=== PATIENT | female | born 1970 | race Caucasian/White ===

== ENCOUNTER 2016-12-12 05:15 | Day surgery (SDC) | payer OTHER ==
[2016-12-07 13:39] VITALS: BMI 34.9
--- NOTE | 2016-12-12 11:09 | HP ---
History & Physical Update - History History: No Change - Physical Physical: No Change - Assessment Assessment: No Change - Plan Plan: No Change (abnormal uterine bleeding and endometrial polyp - for hysterscopic myomectomy/polypectomy and D&C)
[2016-12-12] MEDS ORDERED: IBUPROFEN 800 MG/8 ML IJ IVPB PRN (11:12)
[2016-12-12] MEDS ORDERED: LACTATED RINGERS SOLUTION 1,000 ML IV SCH (11:15)
[2016-12-12] MEDS ORDERED: MIDAZOLAM HCL 2 MG/2 ML SINGLE DOSE VIAL ONE (11:30)
[2016-12-12] MEDS ORDERED: DEXAMETHASONE SOD PHOSPHATE 4 MG/1 ML VIAL ONE (11:37)
[2016-12-12] MEDS ORDERED: SUCCINYLCHOLINE CHLORIDE 200 MG/10 ML VIAL ONE (11:37)
[2016-12-12] MEDS ORDERED: KETOROLAC TROMETHAMINE 30 MG/1 ML VIAL ONE (11:37)
[2016-12-12] MEDS ORDERED: PROPOFOL 20 ML ONE (11:38)
--- NOTE | 2016-12-12 12:21 | OP ---
Operative Note - Note: Operative Date: 12/12/16 (dictation number [id number]) Pre-Operative Diagnosis: abnormal uterine bleeding, endometrial polyp Operation: hysteroscopic resection of endometrial and cervical polyp Findings: posterior endometrial polyp posterior endocervical polyp otherwise normal anatomy Post-Operative Diagnosis: Same as Pre-op Surgeon: Eryn Haro Anesthesiologist/SCHEDULING ADMINISTRATOR: Kelly Khan MD Anesthesia: General Estimated Blood Loss (mls): 5 Operative Report Dictated: Yes
[2016-12-12] MEDS ORDERED: ONDANSETRON 4 MG/2 ML VIAL IVPUSH PRN (12:43)
[2016-12-12 15:53] VITALS: PULSE 70
[2016-12-12 15:57] VITALS: BP 118/70; TEMP 97.8
--- NOTE | 2016-12-13 10:34 | PATH ---
Surgical Pathology Report Patient Name: RADHA ESNA [facility]. Rec. #: [id number] /Age/Gender: 1970 (Age: 46) / F Account: [id number] Location: [facility] SURGICAL Taken: 12/12/2016 Received: 12/12/2016 Reported: 12/13/2016 Physicians: Eryn Haro M.D. Specimen(s) Received ENDOMETRIAL CURETTINGS & POLYPS Clinical History Endometrial polyp Final Diagnosis ENDOMETRIUM, CURETTING AND POLYPECTOMY: PORTIONS OF BENIGN ENDOMETRIAL POLYP, AND PROLIFERATIVE ENDOMETRIUM. NO ENDOMETRIAL HYPERPLASIA OR CARCINOMA IDENTIFIED. Electronically Signed Andres Pepper M.D. Gross Description Received in formalin labeled "endometrial polyp and curettings," is a 4.5 x 4.0 x 0.4 cm aggregate of gordon pink soft tissue fragments. The formalin is filtered and the specimen is entirely submitted in 3 cassettes. /12/12/2016 saudi/12/12/2016
--- NOTE | 2016-12-13 11:31 | OP ---
DATE OF OPERATION: 12/12/2016 PREOPERATIVE DIAGNOSIS: Abnormal uterine bleeding suspected endometrial polyp versus fibroid. POSTOPERATIVE DIAGNOSIS: Abnormal uterine bleeding suspected endometrial polyp versus fibroid with large posterior endometrial polyp. PROCEDURE PERFORMED: Hysteroscopic resection of endometrial polyp, suction dilatation and curettage. SURGEON: Eryn Haro DO ANESTHESIA: General. ANESTHESIOLOGIST: COMPLICATIONS: None. ESTIMATED BLOOD LOSS: Approximately 5 mL. SPECIMENS REMOVED: Included endometrial polyp and endometrial curettings. SPONGE, NEEDLE AND INSTRUMENT COUNTS: Reported to be correct. DISPOSITION: Stable to PACU. BRIEF HISTORY AND PROCEDURE: The patient is a 46-year-old female who had been seen in the office with complaints of heavy abnormal menstrual bleeding and upon saline infusion sonography was found to have an endometrial polyp. The patient was counseled on her options and elected to undergo hysteroscopic resection of the endometrial polyp. The patient had sign consents in the office which were reconfirmed upon admission on December 12, 2016. The patient was taken back to the operating room, given general anesthesia by . She was then prepped and draped in the dorsal lithotomy position without difficulty. The cervix was dilated to accommodate a diagnostic hysteroscope which was advanced to the fundus of the uterus. Bilateral tubal ostia were noted. A large posterior endometrial polyp was appreciated and a posterior cervical polyp was also appreciated. The cervix was then further dilated to accommodate an operative hysteroscope which was again advanced to the fundus. Again bilateral tubal ostia were noted. Using the razor point resectoscope, the posterior endometrial polyp was then resected in its entirety in the usual fashion. Then, the cervical polyp was also resected in its entirety in the usual fashion using the resectoscope device. A suction D and C was performed to remove all the resected tissue, endometrial contents. One final look with the scope revealed no remaining portions of the endometrial polyps or the cervical polyp and no evidence of uterine perforation was appreciated. The deficit was 0 mL of saline. All instruments were removed from the vagina. Tenaculum sites were noted to be hemostatic. Sponge and instrument counts were reported to be correct. The patient tolerated the procedure well and was recovering in stable condition in the PACU at the time of this dictation. ERYN HARO DO /[id number]
== END 2016-12-12 15:00 | disposition home or self-care (01) ==
LOC: JASU-SURG 05:15
PROVIDERS: ATTEND Obstetrics & Gynecology
PROC: 0UB98ZX Excision of Uterus, Via Natural or Artificial Opening Endoscopic, Diagnostic (ICD-10-PCS; principal; 2016-12-12 11:00)
PROC: 0UDB8ZX Extraction of Endometrium, Via Natural or Artificial Opening Endoscopic, Diagnostic (ICD-10-PCS; 2016-12-12 11:00)
DX: N93.9 Abnormal uterine and vaginal bleeding, unspecified (principal); N84.0 Polyp of corpus uteri
CPT/HCPCS: 84703; 88305-TC; 94760

== ENCOUNTER 2017-05-25 16:25 | Emergency (ER) | payer OTHER ==
[2017-05-25 16:36] VITALS: BMI 34.9
--- NOTE | 2017-05-25 16:54 | PDOC ---
History of Present Illness - General Chief Complaint: Pain, Acute Stated Complaint: STOMACH PAIN Time Seen by Provider: 05/25/17 16:54 - History of Present Illness Initial Comments: 05/25/17 18:30 47yo woman with PMH of gastritis, ERCP induced pancreatitis and choledocholithiasis s/p cholecystectomy 2 months ago who presents with acute onset of epigastric pain radiating to sternum and L arm since this AM. Pain is stabbing in character, 8/10 at peak, now 7/10. She vomited once this AM. Denies fever or chills. Allergies: NKDA Social: No tobacco use PCP: Dr. Tonia Dewey GI: Dr. Parker 05/25/17 19:08 Past History - Past Medical History Allergies/Adverse Reactions: Allergies Allergy/AdvReac Type Severity Reaction Status Date / Time No Known Allergies Allergy Verified 05/25/17 16:30 Home Medications: Ambulatory Orders NK [No Known Home Medication] 05/25/17 Anemia: Yes (MILD) Asthma: No Cancer: No Cardiac Disorders: No CVA: No COPD: No CHF: No Dementia: No Diabetes: No GI Disorders: Yes (CONSTIPATION, BILE DUCT HYPERTROPHY, Gastritis) Disorders: No HTN: No Hypercholesterolemia: No Liver Disease: Yes (FATTY LIVER) Seizures: No Thyroid Disease: No - Surgical History Abdominal Surgery: No Appendectomy: No Cardiac Surgery: No Cholecystectomy: No Lung Surgery: No Neurologic Surgery: No Orthopedic Surgery: No - Suicide/Smoking/Psychosocial Hx Smoking History: Never smoked Have you smoked in the past 12 months: No Information on smoking cessation initiated: No Hx Alcohol Use: No Drug/Substance Use Hx: No Substance Use Type: Alcohol Hx Substance Use Treatment: No *Physical Exam - Vital Signs Last Vital Signs Temp Pulse Resp BP Pulse Ox 97.6 F 81 20 127/69 100 05/25/17 16:30 05/25/17 16:30 05/25/17 16:30 05/25/17 16:30 05/25/17 16:30 ED Treatment Course - LABORATORY CBC & Chemistry Diagram: 05/25/17 17:36 05/25/17 17:36 Medical Decision Making - Medical Decision Making 05/25/17 19:09 47yo woman with significant h/o gastritis, ERCP induced pancreatitis, and choledocholithiasis s/p cholecystectomy 2 months ago who presents with severe epigastric/sternal pain radiating to L arm. DDx includes pancreatitis, retained stone, ACS with atypical CP, gastritis. Will order CBC, CMP, lipase, cardiac enzymes, EKG. 05/25/17 19:18 EKG NSR, rate 83, normal axis, normal intervals, no ischemic changes. 1st Troponin neg, lipase wnl. Will order Abd/pelvis CT with IV contrast. 05/25/17 19:20 Case signed off to in-coming resident. *DC/Admit/Observation/Transfer - Referrals Referrals: Tonia Dewey [Primary Care Provider] - - Patient Instructions - Post Discharge Activity
--- NOTE | 2017-05-25 16:59 | PDOC ---
Attending Attestation - HPI HPI: 05/25/17 17:33 47 year old woman, with significant past medical history of Cholecystectomy () and gastritis, who presents to the emergency room complaining of epigastric pain that radiates to the sternum and left arm that started this morning and is 10/10 in severity at its worst. She reports 1 episode of vomiting today. Allergies: NKA Social: No tobacco use PCP: Dr. Tonia Dewey GI: Dr. Parker <Ana Forbes - Last Filed: 05/25/17 17:33> - Resident Resident Name: FiorellaShavon - ED Attending Attestation I have performed the following: I have examined & evaluated the patient, The case was reviewed & discussed with the resident, I agree w/resident's findings & plan, Exceptions are as noted - Physicial Exam PE: GENERAL: Awake, alert, and fully oriented, in no acute distress. Appears uncomfortable. HEAD: No signs of trauma EYES: PERRLA, EOMI, sclera anicteric, conjunctiva clear ENT: Auricles normal inspection, hearing grossly normal, nares patent, oropharynx clear without exudates. Moist mucosa NECK: Normal ROM, supple, no lymphadenopathy, JVD, or masses LUNGS: Breath sounds equal, clear to auscultation bilaterally. No wheezes, and no crackles HEART: Regular rate and rhythm, normal S1 and S2, no murmurs, rubs or gallops ABDOMEN: Soft, nontender, normoactive bowel sounds. No guarding, no rebound. No masses EXTREMITIES: Normal range of motion, no edema. No clubbing or cyanosis. No cords, erythema, or tenderness NEUROLOGICAL: Cranial nerves II through XII grossly intact. Normal speech, normal gait SKIN: Warm, Dry, normal turgor, no rashes or lesions noted. - Medical Decision Making Pain is not reproducible on exam, however, she states it is similar to when she had cholecystitis. DDx includes pancreatitis, retained stone, gastritis, and ACS. Will obtain CT a/p, EKG, labs including CE. Will give morphine for pain, protonix. <Anabell Quinteros - Last Filed: 05/25/17 18:41>
[2017-05-25 17:40] LABS: BASOPHIL 0.3 % (0-2.0); EOSINOPHIL 0.3 % (0-4.5); MCH 23.1 pg (25.7-33.7); MCHC 31.4 g/dl (32.0-36.0); MEAN CELL VOLUME 73.6 fl (80-96); MEAN PLT VOLUME 7.8 fl (7.5-11.1); NEUTROPHILS 85.4 % (42.8-82.8); PLATELET COUNT 305 K/MM3 (134-434); RDW 18.6 % (11.6-15.6); WHITE BLOOD COUNT 15.4 K/mm3 (4.0-10.0)
[2017-05-25] MEDS ORDERED: morphine CARPU-JECT 4 MG/1 ML DISP.SYRIN IVPUSH ONE (17:44)
[2017-05-25] MEDS ORDERED: PANTOPRAZOLE SODIUM 40 MG VIAL IVPUSH ONE (17:45)
[2017-05-25] MEDS ORDERED: PANTOPRAZOLE SODIUM 40 MG/100 ML BAG IVPB ONE (17:51)
[2017-05-25] MEDS ORDERED: morphine SULFATE 4 MG/ML VIAL ONE (17:51)
[2017-05-25 18:13] LABS: ALBUMIN 3.9 g/dl (3.4-5.0); ANION GAP 7 (8-16); BILIRUBIN,TOTAL 0.5 mg/dL (0.2-1.0); CO2 28 mmol/L (21-32); CREATININE 0.6 mg/dL (0.55-1.02); GLUCOSE,RANDOM 109 mg/dL (74-106); SGOT/AST 172 U/L (15-37); SGPT/ALT 91 U/L (12-78); TOT PROT 7.7 g/dl (6.4-8.2)
[2017-05-25 18:14] LABS: CPK 78 IU/L (26-192); TROPONIN I < 0.02 ng/ml (0.00-0.05)
[2017-05-25 18:16] LABS: ALK PHOS 422 U/L (45-117); CPK 77 IU/L (26-192); TROPONIN I < 0.02 ng/ml (0.00-0.05)
[2017-05-25 20:43] VITALS: BP 133/79; PULSE 89; TEMP 98.8
[2017-05-25] MEDS ORDERED: MAG HYDROX/AL HYDROX/SIMETH 30 ML UNIT-DOSE CUP ONE (20:46)
[2017-05-25] MEDS ORDERED: MAG HYDROX/AL HYDROX/SIMETH 30 ML UNIT-DOSE CUP PO ONE (20:46)
--- NOTE | 2017-05-25 22:12 | PDOC ---
*Physical Exam - Vital Signs Last Vital Signs Temp Pulse Resp BP Pulse Ox 98.8 F 89 17 133/79 98 05/25/17 20:43 05/25/17 20:43 05/25/17 20:43 05/25/17 20:43 05/25/17 20:43 ED Treatment Course - LABORATORY CBC & Chemistry Diagram: 05/25/17 17:36 05/25/17 17:36 - ADDITIONAL ORDERS Additional order review: Laboratory Results 05/25/17 05/25/17 05/25/17 18:25 17:36 17:36 Sodium 138 Potassium 3.9 Chloride 103 Carbon Dioxide 28 Anion Gap 7 L BUN 10 Creatinine 0.6 Creat Clearance w eGFR > 60 Random Glucose 109 H Calcium 9.0 Total Bilirubin 0.5 D AST 172 H D ALT 91 H D Alkaline Phosphatase 422 H D Creatine Kinase 77 78 Troponin I < 0.02 < 0.02 Total Protein 7.7 Albumin 3.9 Lipase 164 Serum , Qual Negative 05/25/17 17:36 RBC 5.28 H MCV 73.6 L MCHC 31.4 L RDW 18.6 H D MPV 7.8 Neutrophils % 85.4 H D Lymphocytes % 7.3 L D Monocytes % 6.7 Eosinophils % 0.3 Basophils % 0.3 - Medications Given in the ED: ED Medications Discontinued Medications Generic Name Dose Route Start Last Admin Trade Name Andersq PRN Reason Stop Dose Admin Al Hydroxide/Mg Hydroxide 30 ml 05/25/17 20:46 05/25/17 20:51 Mylanta Oral Suspension - PO 05/25/17 20:47 30 ml ONCE ONE Administration Morphine Sulfate 4 mg 05/25/17 17:44 05/25/17 17:59 Morphine Injection - IVPUSH 05/25/17 17:45 4 mg ONCE ONE Administration Pantoprazole Sodium 40 mg 05/25/17 17:45 05/25/17 17:59 Protonix Iv IVPUSH 05/25/17 17:46 40 mg ONCE ONE Administration Medical Decision Making - Medical Decision Making 47 year old female with previous cholecystectomy presenting with abdominal pain. CT negative and pain improved. Will DC patient with labs, Ct results, prescription for Zofran/ Maalox and follow up with her PCP. 05/25/17 22:06 *DC/Admit/Observation/Transfer Diagnosis at time of Disposition: Abdominal pain Qualifiers: Abdominal location: generalized Qualified Code(s): R10.84 - Generalized abdominal pain - Discharge Dispostion Disposition: HOME Condition at time of disposition: Improved Admit: No - Prescriptions Prescriptions: Mag Hydrox/Al Hydrox/Simeth [Mylanta Suspension -] 30 ml PO Q6H PRN #1 bottle PRN Reason: Abdominal Pain Ondansetron [Zofran *Odt*] 8 mg SL BID PRN #20 od.tablet PRN Reason: Nausea - Referrals Referrals: Tonia Dewey [Primary Care Provider] - - Patient Instructions Printed Discharge Instructions: DI for Abdominal Pain-Adult Additional Instructions: We scanned your stomach with a CT scan and did not see anything wrong. Please use Maalox for abdominal pain and Zofran for nausea. Please follow up with your primary care physician within a week id your symptoms continue If your pain is out of control despite using Maalox, please return to the ED. Print Language: CITIZEN OF [place] - Post Discharge Activity
--- NOTE | 2017-05-26 09:29 | EKG ---
Test Reason : Blood Pressure : / mmHG Vent. Rate : 083 BPM Atrial Rate : 083 BPM P-R Int : 140 ms QRS Dur : 076 ms QT Int : 392 ms P-R-T Axes : 055 020 038 degrees QTc Int : 460 ms NORMAL SINUS RHYTHM NORMAL ECG WHEN COMPARED WITH ECG OF 07-OCT-2015 01:04, NONSPECIFIC T WAVE ABNORMALITY NOW EVIDENT IN ANTERIOR LEADS Confirmed by KAVYA LOUIS MD ([id number]) on 05/26/2017 9:28:40 AM Referred By: Confirmed By:KAVYA LOUIS MD
== END 2017-05-25 22:29 | disposition home or self-care (01) ==
LOC: JER 16:25
PROC: 3E033NZ Introduction of Analgesics, Hypnotics, Sedatives into Peripheral Vein, Percutaneous Approach (ICD-10-PCS; principal; 2017-05-25)
PROC: 3E033GC Introduction of Other Therapeutic Substance into Peripheral Vein, Percutaneous Approach (ICD-10-PCS; 2017-05-25)
DX: R10.84 Generalized abdominal pain (principal); Z87.19 Personal history of other diseases of the digestive system; Z90.49 Acquired absence of other specified parts of digestive tract; K91.89 Other postprocedural complications and disorders of digestive system
CPT/HCPCS: 36415; 74177-TC; 80053; 82550; 83690; 84484; 84703; 85025; 93005; 93010; 99284-25

== ENCOUNTER 2019-08-25 19:09 | Inpatient (IN) | payer OTHER ==
[2019-08-25] MEDS ORDERED: SODIUM CHLORIDE 0.9% 500 ML INFUS.BAG IV ONE (20:41)
--- NOTE | 2019-08-25 21:00 | PDOC ---
History of Present Illness - General History Source: Patient Exam Limitations: No Limitations - History of Present Illness Initial Comments: 08/25/19 20:43 Patient is a 49 year old female with h/o fatty liver, cholecystectomy, gastritis c/o fever, chills, abdominal pain x 1 weeks, coughing x yesterday. States that she had been having this abd pain in the epigastrum and right upper quad x 3 years. This pain has been intermittent. 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 She had a cholcystectomy and per chart review was dx with fatty liver and gastritis. She was given antibx 2 years ago states was feeling fine except for intermittent pain every 2 months, assoc/w fever and chills. States the symptoms got worse 1 week ago and symptoms have been daily. She notes she gets the chills, then fever, then the pain now 10/10 sharp. States that 08/07/19 she was seen by Dr. Parker given Metronidazole, porcine, protonix, reglan without any relief of symptoms. Patient c/o that she if feeling weak and fatigue because she has not been eating. Went to Urgent care yesterday, for her symptoms and was tested for the flu was neg. She had been taking Tylenol for the pain and fever with some relief by symptoms return after the tylenol wears off. Denies nausea, vomiting, dysuria, chest pain PMD: Dr. Victor GI: Elena PMHX: as above PSOCHX: neg etoh, neg cig, neg drug ALL: NKDA Review of Systems: GENERAL/CONSTITUTIONAL: (+) fever or chills. (+) weakness. No weight change. HEAD, EYES, EARS, NOSE AND THROAT: No change in vision. No ear pain or discharge. No sore throat. CARDIOVASCULAR: No chest pain or shortness of breath. RESPIRATORY: (+) cough, (-)wheezing, or hemoptysis. GASTROINTESTINAL: No nausea, vomiting, diarrhea or constipation. No rectal bleeding. GENITOURINARY: No dysuria, frequency, or change in urination. MUSCULOSKELETAL: No joint or muscle swelling or pain. No neck or back pain. SKIN AND BREASTS: No rash or easy bruising. NEUROLOGIC: No headache, vertigo, loss of consciousness, or loss of sensation. PSYCHIATRIC: No depression or anxiety. ENDOCRINE: No increased thirst. No abnormal weight change. HEMATOLOGIC/LYMPHATIC: No anemia, easy bleeding, or history of blood clots. ALLERGIC/IMMUNOLOGIC: No hives or skin allergy. No latex allergy. GENERAL: [The patient is awake, alert, and fully oriented, in moderate distress. ] HEAD: [Normal with no signs of trauma.] EYES: [Pupils equal, round and reactive to light, extraocular movements intact, sclera anicteric, conjunctiva clear.] ENT: [Ears normal, nares patent, oropharynx clear without exudates. Moist mucous membranes.] NECK: [Normal range of motion, supple without lymphadenopathy, JVD, or masses.] LUNGS: [Breath sounds equal, clear to auscultation bilaterally. No wheezes, and no crackles.] HEART: [Regular rate and rhythm, normal S1 and S2 without murmur, rub.] ABDOMEN: [Soft, (+) tenderness upper abd, normoactive bowel sounds. No guarding , no rebound. No masses.] EXTREMITIES: [Normal range of motion, no edema. No clubbing or cyanosis. No cords, erythema, or tenderness.] NEUROLOGICAL: [Cranial nerves II through XII grossly intact. Normal speech, normal gait.] PSYCH: [Normal mood, normal affect.] SKIN: [Warm, Dry, normal turgor, no rashes or lesions noted.] <Donaldo Mclean - Last Filed: 08/25/19 23:53> <Zandra Berman - Last Filed: 08/26/19 01:04> - General Chief Complaint: Pain Stated Complaint: ABD PAIN/CHILLS Past History - Past Medical History Anemia: Yes (MILD) Asthma: No Cancer: No Cardiac Disorders: No CVA: No COPD: No CHF: No Dementia: No Diabetes: No GI Disorders: Yes (CONSTIPATION, BILE DUCT HYPERTROPHY, Gastritis) Disorders: No HTN: No Hypercholesterolemia: No Liver Disease: Yes (FATTY LIVER) Seizures: No Thyroid Disease: No - Surgical History Abdominal Surgery: No Appendectomy: No Cardiac Surgery: No Cholecystectomy: Yes Lung Surgery: No Neurologic Surgery: No Orthopedic Surgery: No - Psycho Social/Smoking Cessation Hx Smoking History: Never smoked Have you smoked in the past 12 months: No Information on smoking cessation initiated: No Hx Alcohol Use: No Drug/Substance Use Hx: No Substance Use Type: Alcohol Hx Substance Use Treatment: No <Donaldo Mclean - Last Filed: 08/25/19 23:53> <Zandra Berman - Last Filed: 08/26/19 01:04> - Past Medical History Allergies/Adverse Reactions: Allergies Allergy/AdvReac Type Severity Reaction Status Date / Time No Known Allergies Allergy Verified 08/25/19 19:43 Home Medications: Ambulatory Orders Mag Hydrox/Al Hydrox/Simeth [Mylanta Suspension -] 30 ml PO Q6H PRN #1 bottle Ondansetron [Zofran *Odt*] 8 mg SL BID PRN #20 od.tablet 05/25/17 *Physical Exam - Vital Signs Last Vital Signs Temp Pulse Resp BP Pulse Ox 102.7 F H 117 H 17 119/76 100 08/25/19 19:38 08/25/19 19:38 08/25/19 19:38 08/25/19 19:38 08/25/19 19:38 <Donaldo Mclean - Last Filed: 08/25/19 23:53> - Vital Signs Last Vital Signs Temp Pulse Resp BP Pulse Ox 102.7 F H 117 H 17 119/76 100 08/25/19 19:38 08/25/19 19:38 08/25/19 19:38 08/25/19 19:38 08/25/19 19:38 <Zandra Berman - Last Filed: 08/26/19 01:04> ED Treatment Course - LABORATORY CBC & Chemistry Diagram: 08/25/19 21:30 08/25/19 21:30 <Donaldo Mclean - Last Filed: 08/25/19 23:53> - LABORATORY CBC & Chemistry Diagram: 08/25/19 21:30 08/25/19 21:30 - ADDITIONAL ORDERS Additional order review: Laboratory Results 08/25/19 08/25/19 08/25/19 21:31 21:30 21:30 Sodium Potassium Chloride Carbon Dioxide Anion Gap BUN Creatinine Est GFR (CKD-EPI)AfAm Est GFR (CKD-EPI)NonAf Random Glucose Lactic Acid 1.0 Calcium Total Bilirubin AST ALT Alkaline Phosphatase Total Protein Albumin Lipase Serum , Qual Negative Urine Color Yellow Urine Appearance Clear Urine pH >= 9.0 H D Ur Specific Flasher 1.013 Urine Protein Negative Urine Glucose (UA) Negative Urine Ketones 1+ H Urine Blood Trace Urine Nitrite Negative Urine Bilirubin Negative Urine Urobilinogen 1.0 Ur Leukocyte Esterase Negative Urine WBC (Auto) 1 Urine RBC (Auto) 19 Urine Casts (Auto) 0 U Epithel Cells (Auto) 1.2 Urine Bacteria (Auto) 27.3 08/25/19 21:30 Sodium 138 Potassium 3.8 Chloride 105 Carbon Dioxide 25 Anion Gap 8 BUN 8.6 Creatinine 0.7 Est GFR (CKD-EPI)AfAm 119.58 Est GFR (CKD-EPI)NonAf 103.18 Random Glucose 129 H Lactic Acid Calcium 8.8 Total Bilirubin 0.5 AST 41 H ALT 68 H Alkaline Phosphatase 279 H Total Protein 7.1 Albumin 3.4 Lipase 76 Serum , Qual Urine Color Urine Appearance Urine pH Ur Specific Flasher Urine Protein Urine Glucose (UA) Urine Ketones Urine Blood Urine Nitrite Urine Bilirubin Urine Urobilinogen Ur Leukocyte Esterase Urine WBC (Auto) Urine RBC (Auto) Urine Casts (Auto) U Epithel Cells (Auto) Urine Bacteria (Auto) 08/25/19 21:30 RBC 4.90 MCV 83.6 MCHC 33.2 RDW 14.2 D MPV 7.7 Neutrophils % 79.4 Lymphocytes % 9.4 D Monocytes % 10.1 Eosinophils % 0.1 Basophils % 1.0 D - RADIOLOGY Radiology Studies Ordered: Category Date Time Status ABDOMEN US -LIMITED [US] Stat Ultrasound 08/25/19 22:15 Taken - Medications Given in the ED: ED Medications Discontinued Medications Generic Name Dose Route Start Last Admin Trade Name Freq PRN Reason Stop Dose Admin Famotidine/Sodium Chloride 20 mg in 50 mls @ 100 mls/hr 08/25/19 21:22 21:42 Pepcid 20 Mg Premixed Ivpb - IVPB 08/25/19 21:51 100 mls/hr ONCE ONE Administration Ketorolac Tromethamine 30 mg 08/25/19 21:01 08/25/19 21:41 Toradol Injection - IVPUSH 08/25/19 21:02 30 mg ONCE ONE Administration Sodium Chloride 1,000 ml 08/25/19 20:41 08/25/19 21:41 Normal Saline - IV 08/25/19 20:42 1,000 ml ONCE ONE Administration Zandra High - Last Filed: 08/26/19 01:04> Medical Decision Making - Medical Decision Making 08/25/19 20:43 Patient is a 49 year old female with h/o fatty liver, cholecystectomy, gastritis c/o fever, chills, abdominal pain x 1 weeks, coughing x yesterday. States that she had been having this abd pain in the epigastrum and right upper quad x 3 years. This pain has been intermittent. 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 She had a cholcystectomy and per chart review was dx with fatty liver and gastritis. She was given antibx 2 years ago states was feeling fine except for intermittent pain every 2 months, assoc/w fever and chills. States the symptoms got worse 1 week ago and symptoms have been daily. She notes she gets the chills, then fever, then the pain now 10/10 sharp. States that 08/07/19 she was seen by Dr. Parker given Metronidazole, porcine, protonix, reglan without any relief of symptoms. Patient c/o that she if feeling weak and fatigue because she has not been eating. Went to Urgent care yesterday, for her symptoms and was tested for the flu was neg. She had been taking Tylenol for the pain and fever with some relief by symptoms return after the tylenol wears off. Denies nausea, vomiting, dysuria, chest pain. Patient with abdominal pain, cough and fever will rule out sepsis Sepsis labs IV fluids, pain meds CT abdomen pelvis IV contrast Reassess 08/25/19 23:53 Patient Full Name: JAIDA GARCIA Patient Accession No: [id number] Patient : [id number] Reason for Exam: abdominal pain and fever Referring Physician: Patient Name: RADHA SENA THIS IS A PRELIMINARY REPORT FROM [facility] DATE OF SERVICE: 2019-08-25 22:46:12 IMAGES: 450 EXAM: CT abdomen and pelvis with contrast HISTORY: Abdominal pain and fever COMPARISON: None. FINDINGS: Mildly dilated fluid-filled loops of jejunum are noted but there is no abrupt transition zone. The pattern looks more like a mild ileus (part of a gastroenteritis)? Rather than obstruction but if there are signs or symptoms of bowel obstruction, close follow-up is recommended. Negative for diverticulitis or colitis. Tiny appendicoliths are noted in a non- thickened noninflamed appendix. No free intraperitoneal air or free fluid. Prior cholecystectomy. There is pneumobilia. There is a 1 cm x 2.2 mm density within the gastroduodenal junction. It looks like an ingested object such as a bone. There is no extraluminal air around it. Recommend follow-up. Normal liver Normal spleen. Normal pancreas. Normal adrenal glands. Normal kidneys urinary tract and urinary bladder. 1.7 cm left adnexal cyst. There is also a 3 cm heterogeneous right uterine or parauterine mass with increased density within it. This could represent a fibroid or a paraovarian cyst. Increased density could be some hemorrhage. Ultrasound would be helpful for more precise characterization. Osseous structures are intact. One or more of the following dose reduction techniques were used: automated exposure control, adjustment of the mA and/or kV according to patient size, use of iterative reconstructive technique. THIS DOCUMENT HAS BEEN ELECTRONICALLY SIGNED Moise Frye MD 08/25/2019 23:36 EST M.D. Please call [facility] [phone]) with questions. INTERPRETING RADIOLOGIST: Moise Frye MD Electronically Signed: Aug 25, 2019 11:37PM EST Case discussed with Dr. Pagan will admit to his service. <Donaldo Mclean - Last Filed: 08/25/19 23:53> - Medical Decision Making 08/25/19 23:41 Patient Name: RADHA SENA THIS IS A PRELIMINARY REPORT FROM [facility] DATE OF SERVICE: 2019-08-25 22:46:12 IMAGES: 450 EXAM: CT abdomen and pelvis with contrast HISTORY: Abdominal pain and fever COMPARISON: None. FINDINGS: Mildly dilated fluid-filled loops of jejunum are noted but there is no abrupt transition zone. The pattern looks more like a mild ileus (part of a gastroenteritis)? Rather than obstruction but if there are signs or symptoms of bowel obstruction, close follow-up is recommended. Negative for diverticulitis or colitis. Tiny appendicoliths are noted in a non- thickened noninflamed appendix. No free intraperitoneal air or free fluid. Prior cholecystectomy. There is pneumobilia. There is a 1 cm x 2.2 mm density within the gastroduodenal junction. It looks like an ingested object such as a bone. There is no extraluminal air around it. Recommend follow- up. Normal liver Normal spleen. Normal pancreas. Normal adrenal glands. Normal kidneys urinary tract and urinary bladder. 1.7 cm left adnexal cyst. There is also a 3 cm heterogeneous right uterine or parauterine mass with increased density within it. This could represent a fibroid or a paraovarian cyst. Increased density could be some hemorrhage. Ultrasound would be helpful for more precise characterization. Osseous structures are intact. 08/26/19 01:03 RADHA SENA Findings discussed with Dr. Dunaway 1 AM [place] THIS DOCUMENT HAS BEEN ELECTRONICALLY SIGNED Moise Frye MD 08/26/2019 01:01 SERA Olivo Please call [facility] [phone]) with questions. Moise Frye MD Comments: Moise Frye MD wrote on Aug 26, 2019 at 12:57 AM: Referring Physician: KATYA BOLTON Patient Name: RADHA SENA THIS IS A PRELIMINARY REPORT FROM [facility] DATE OF SERVICE: 2019-08-25 23:00:54 IMAGES: 48 EXAM: ABDOMEN US -LIMITED HISTORY: Rule out biliary stone. Pancreatitis. COMPARISON: None. FINDINGS: The common bile duct is 2.8 mm which is normal. However please refer to the addendum on the CT dictation which describes pneumobilia, dilated left intrahepatic ducts and a possible common bile duct stone. Liver cyst noted. No right upper quadrant free fluid. No right hydronephrosis. Prior cholecystectomy. In this particular case, MRCP may be more helpful and more sensitive to evaluate for biliary stones. <Zandra Berman - Last Filed: 08/26/19 01:04> Discharge - Discharge Information Problems reviewed: Yes - Admission Yes <Donaldo Mclean - Last Filed: 08/25/19 23:53> <Zandra Berman - Last Filed: 08/26/19 01:04> - Discharge Information Clinical Impression/Diagnosis: Intractable abdominal pain Condition: Stable
[2019-08-25] MEDS ORDERED: KETOROLAC TROMETHAMINE 30 MG/1 ML VIAL IVPUSH ONE (21:01)
[2019-08-25] MEDS ORDERED: KETOROLAC TROMETHAMINE 30 MG/1 ML VIAL ONE (21:15)
[2019-08-25] MEDS ORDERED: FAMOTIDINE 20 MG/50 ML IVPB 20 MG/50 ML MG IVPB ONE ×2 (21:22→21:43)
[2019-08-25 21:42] LABS: EOS % 0.1 % (0-4.5); HEMOGLOBIN 13.6 GM/dL (10.7-15.3); LYMPH % 9.4 % (8-40); MCH 27.8 pg (25.7-33.7); MCHC 33.2 g/dl (32.0-36.0); MEAN CELL VOLUME 83.6 fl (80-96); MEAN PLT VOLUME 7.7 fl (7.5-11.1); MONO % 10.1 % (3.8-10.2); NEUT % 79.4 % (42.8-82.8); PLATELET COUNT 284 K/MM3 (134-434); RDW 14.2 % (11.6-15.6); WHITE BLOOD COUNT 11.3 K/mm3 (4.0-10.0)
[2019-08-25 22:01] LABS: EPI CELLS 1.2 /HPF (0-5/HPF); HYALINE CASTS 0 /lpf (0-8); PH,URINE >= 9.0 (5.0-8.0); URINE APPEARANCE CLEAR; URINE BACTERIA 27.3 /hpf (NEGATIVE); URINE BILIRUBIN NEGATIVE (NEGATIVE); URINE COLOR YELLOW; URINE GLUCOSE (UA) NEGATIVE (NEGATIVE); URINE KETONE 1+ (NEGATIVE); URINE LEUK ESTERASE NEGATIVE (NEGATIVE); URINE NITRITE NEGATIVE (NEGATIVE); URINE PROTEIN NEGATIVE (NEGATIVE); URINE RBC 19 /hpf (0-4); URINE WBC 1 /hpf (0-5)
[2019-08-25 22:09] LABS: ALBUMIN 3.4 g/dl (3.4-5.0); BILIRUBIN,TOTAL 0.5 mg/dL (0.2-1); BLOOD UREA NITROGEN 8.6 mg/dL (7-18); CALCIUM 8.8 mg/dL (8.5-10.1); CREATININE 0.7 mg/dL (0.55-1.3); POTASSIUM 3.8 mmol/L (3.5-5.1); TOT PROT 7.1 g/dl (6.4-8.2)
[2019-08-25] MEDS ORDERED: PIPERACILLIN/TAZOB 3.375 GM 3.375 GM in DEXTROSE 5%-WATER - 50 ML IVPB ONE (23:42)
[2019-08-26] MEDS ORDERED: PIPERACILLIN/TAZOB 3.375 GM 3.375 GM/50 ML BAG IVPB ONE ×2 (00:21→18:49)
[2019-08-26] MEDS ORDERED: morphine CARPU-JECT 2 MG/1 ML DISP.SYRIN IVPUSH ONE (05:00)
[2019-08-26] MEDS ORDERED: SODIUM CHLORIDE 0.9% 500 ML INFUS.BAG IV ONE (05:01)
[2019-08-26] MEDS ORDERED: MORPHINE SULFATE 2 MG/ML VIAL ONE (05:03)
--- NOTE | 2019-08-26 11:12 | HP ---
DATE OF ADMISSION: 08/25/2019 HISTORY: A 49-year-old female patient of came here last night to the emergency room with complaints of fever, abdominal pain. In the ER, patient was noted to have a foreign body in the stomach so got admitted. This morning, patient is feeling better. She got IV antibiotics. PHYSICAL EXAMINATION: Vital Signs: At the time of admission, it was 102 fever. This morning it is 99. Blood pressure 110/70, respirations 20, temperature 98. HEENT: Unremarkable. Neck: Supple. No JVD. Lungs: Clear. Heart: S1, S2 normal. No S3, S4. Abdomen: Soft. Extremities: Legs, no edema. Neurologic: Grossly normal. LABORATORY REPORTS: Urine is negative. Chemistry, electrolytes are normal. Borderline elevation of AST, ALT noted. Hematology, WBC 11.3. Ultrasound of the abdomen is negative. CT of the abdomen showed some foreign body in the stomach. IMPRESSION: Viral syndrome. PLAN: Discontinue home on p.o. antibiotics. We will follow. Pallavi [id number]
[2019-08-26] MEDS ORDERED: ACETAMINOPHEN 325 MG TABLET (FP) PO ONE ×2 (12:17→19:00)
[2019-08-26] MEDS ORDERED: ACETAMINOPHEN 325 MG TABLET (FP) ONE ×2 (12:17→18:49)
[2019-08-26] MEDS ORDERED: SODIUM CHLORIDE 1,000 ML IV ONE (12:17)
[2019-08-26] MEDS: PIPERACILLIN/TAZOB 3.375 GM 3.375 GM in DEXTROSE 5%-WATER - 50 ML IVPB SCH (19:05)
[2019-08-27] MEDS ORDERED: DEXTROSE 5%-WATER - 50 ML IVPB ONE ×3 (02:47→17:12)
[2019-08-27] MEDS ORDERED: PIPERACILLIN/TAZOBACTAM 3.375 GM VIAL IVPB ONE ×3 (02:47→17:11)
[2019-08-27] MEDS: PIPERACILLIN/TAZOB 3.375 GM 3.375 GM in DEXTROSE 5%-WATER - 50 ML IVPB SCH ×3 (02:49→18:15)
[2019-08-27 05:55] VITALS: BMI 31.5
--- NOTE | 2019-08-27 08:00 | CON.GI ---
Consult Consult Specialty:: GI Referred by:: Dr Laura Farmer Reason for Consultation:: Abdominal Pain - History of Present Illness History of Present Illness: Patient is a 49 y/o female with past medical history of fatty liver, cholecystectomy, gastritis. Consult was placed for abdominal pain. Patient states she would experience epigastric/RUG pain after eating which began 7 days ago. She denies having nausea or vomiting with abdominal pain. CTAP in ER shows hepatomegaly with diffuse fatty infiltration of liver, s/p cholecystectomywith pneumobilia, radiopaque foreign body measuring 9mm within the gastric antrum. Her last EGD was done 2017 which showed nodular mucosa at gastroesophageal junction, erythema subepithelial hemorrhage in body of the stomach, moderate chonic inflammation at GE junction. She denies nausea, vomiting, diarrhea, constipation, rectal bleeding, melena, or abnormal weight loss. - History Source History Provided By: Patient Limitations to Obtaining History: No Limitations - Past Medical History Gastrointestinal: Yes: Gastritis Hepatobiliary: Yes: Cholelithiasis, Choledocholithiasis ...LMP: 08/10/19 ...: No (Tubal ligation) - Past Surgical History Past Surgical History: Yes: - Alcohol/Substance Use Hx Alcohol Use: No History of Substance Use: reports: None - Smoking History Smoking history: Never smoked Have you smoked in the past 12 months: No - Social History ADL: Independent Home Medications - Allergies Allergies/Adverse Reactions: Allergies Allergy/AdvReac Type Severity Reaction Status Date / Time No Known Allergies Allergy Verified 08/25/19 19:43 - Home Medications Home Medications: Ambulatory Orders Mag Hydrox/Al Hydrox/Simeth [Mylanta Suspension -] 30 ml PO Q6H PRN #1 bottle Ondansetron [Zofran *Odt*] 8 mg SL BID PRN #20 od.tablet 05/25/17 Review of Systems - Review of Systems Constitutional: reports: Loss of Appetite Eyes: reports: No Symptoms HENT: reports: No Symptoms Neck: reports: No Symptoms Cardiovascular: reports: No Symptoms Respiratory: reports: No Symptoms Gastrointestinal: reports: Abdominal Pain Genitourinary: reports: No Symptoms Breasts: reports: No Symptoms Reported Musculoskeletal: reports: No Symptoms Integumentary: reports: No Symptoms Neurological: reports: No Symptoms Endocrine: reports: No Symptoms Hematology/Lymphatic: reports: No Symptoms Psychiatric: reports: No Symptoms Physical Exam-GI Vital Signs: Vital Signs Temperature 98.3 F 08/27/19 06:00 Pulse Rate 72 08/27/19 06:00 Respiratory Rate 18 08/27/19 06:00 Blood Pressure 98/59 L 08/27/19 06:00 O2 Sat by Pulse Oximetry (%) 97 08/27/19 05:55 Constitutional: Yes: No Distress, Calm Eyes: Yes: Conjunctiva Clear HENT: Yes: Atraumatic Cardiovascular: Yes: Regular Rate and Rhythm Respiratory: Yes: Regular, CTA Bilaterally Gastrointestinal Inspection: Yes: WNL. No: Ascites, Distention, Hernia, Scars, Other ...Auscultate: Yes: Normoactive Bowel Sounds. No: Hyperactive Bowel Sounds, Hypoactive Bowel Sounds, No Bowel Sounds, Other ...Palpate: Yes: Soft. No: Firm/Rigid, Guarding, Hepatomegaly, Mass, Pulsatile Mass, Splenomegaly, Tenderness, Tenderness, Epigastium, Tenderness, Rebound, Other ...Percussion: Yes: Tympanitic. No: Dullness, Fluid Wave, Other Neurological: Yes: Alert, Oriented Psychiatric: Yes: Alert, Oriented Labs: CBC, BMP 08/25/19 21:30 08/25/19 21:30 Active Medications Generic Name Dose Route Start Last Admin Trade Name Freq PRN Reason Stop Dose Admin Piperacillin Sod/Tazobactam 50 mls @ 100 mls/hr 08/27/19 02:00 08/27/19 02:49 Sod 3.375 gm/ Dextrose IVPB 100 mls/hr Q8H-IV MARIA G Administration Problem List - Problems (1) Abdominal pain Assessment/Plan: due to 9mm FB in stomach R>FB will pass thru GI tract naturally Code(s): R10.9 - UNSPECIFIED ABDOMINAL PAIN Qualifiers: Abdominal location: generalized Qualified Code(s): R10.84 - Generalized abdominal pain
--- NOTE | 2019-08-27 09:40 | PN ---
Progress Note, Physician Chief Complaint: Feels better today History of Present Illness: Yesterday after I saw her in ER had spiked fever ,so got admitted Received Zosyn ,this AM she is much better - Current Medication List Current Medications: Active Medications Piperacillin Sod/Tazobactam (Sod 3.375 gm/ Dextrose) 50 mls @ 100 mls/hr IVPB Q8H-IV MARIA G Last Admin: 08/27/19 02:49 Dose: 100 mls/hr Pantoprazole Sodium (Protonix -) 40 mg PO DAILY [facility] - Objective Vital Signs: Vital Signs Temperature 98.3 F 08/27/19 06:00 Pulse Rate 72 08/27/19 06:00 Respiratory Rate 18 08/27/19 06:00 Blood Pressure 98/59 L 08/27/19 06:00 O2 Sat by Pulse Oximetry (%) 97 08/27/19 05:55 Constitutional: Yes: No Distress Eyes: Yes: WNL HENT: Yes: WNL Neck: Yes: WNL Cardiovascular: Yes: WNL Respiratory: Yes: WNL Gastrointestinal: Yes: Normal Bowel Sounds, Soft Genitourinary: Yes: WNL Extremities: Yes: WNL Labs: CBC, BMP 08/25/19 21:30 08/25/19 21:30 Assessment/Plan Regular diet
[2019-08-27] MEDS: PANTOPRAZOLE 40 MG TABLET PO SCH (10:21)
--- NOTE | 2019-08-27 12:58 | CON.ID ---
Consult Consult Specialty:: infectious diseases Referred by:: Reason for Consultation:: fever,abd pain - History of Present Illness Chief Complaint: fever,abd pain History of Present Illness: 49 year old female with h/o fatty liver, cholecystectomy, gastritis c/o fever, chills, abdominal pain x 1 weeks, coughing x yesterday. States that she had been having this abd pain in the epigastrum and right upper quad x 3 years. This pain has been intermittent. She had a cholcystectomy and per chart review was dx with fatty liver and gastritis. States the symptoms got worse 1 week ago and symptoms have been daily. She notes she gets the chills, then fever, then the pain now 10/10 sharp. States that 08/07/19 she was seen by Dr. Parker given Metronidazole, porcine, protonix, reglan without any relief of symptoms. Patient c/o that she if feeling weak and fatigue because she has not been eating. Went to Urgent care yesterday, for her symptoms and was tested for the flu was neg. She had been taking Tylenol for the pain and fever with some relief by symptoms return after the tylenol wears off. Denies nausea, vomiting , dysuria, chest pain according to the patient she had recently travelled to [place] and came back from [place] on 08/22 says she was bitten by small mosquitos there - History Source History Provided By: Patient Limitations to Obtaining History: No Limitations - Past Medical History Gastrointestinal: Yes: Gastritis Hepatobiliary: Yes: Cholelithiasis, Choledocholithiasis ...LMP: 08/10/19 ...: No (Tubal ligation) - Past Surgical History Past Surgical History: Yes: - Alcohol/Substance Use Hx Alcohol Use: No History of Substance Use: reports: None - Smoking History Smoking history: Never smoked Have you smoked in the past 12 months: No - Social History ADL: Independent Home Medications - Allergies Allergies/Adverse Reactions: Allergies Allergy/AdvReac Type Severity Reaction Status Date / Time No Known Allergies Allergy Verified 08/25/19 19:43 - Home Medications Home Medications: Ambulatory Orders Mag Hydrox/Al Hydrox/Simeth [Mylanta Suspension -] 30 ml PO Q6H PRN #1 bottle Ondansetron [Zofran *Odt*] 8 mg SL BID PRN #20 od.tablet 05/25/17 Review of Systems - Review of Systems Constitutional: reports: Chills, Fever Eyes: reports: No Symptoms HENT: reports: No Symptoms Neck: reports: No Symptoms Cardiovascular: reports: No Symptoms Respiratory: reports: No Symptoms Gastrointestinal: reports: No Symptoms Genitourinary: reports: No Symptoms Musculoskeletal: reports: No Symptoms Integumentary: reports: No Symptoms Neurological: reports: No Symptoms Endocrine: reports: No Symptoms Hematology/Lymphatic: reports: No Symptoms Psychiatric: reports: No Symptoms Physical Exam Vital Signs: Vital Signs Temperature 98.3 F 08/27/19 06:00 Pulse Rate 72 08/27/19 06:00 Respiratory Rate 18 08/27/19 06:00 Blood Pressure 98/59 L 08/27/19 06:00 O2 Sat by Pulse Oximetry (%) 97 08/27/19 05:55 Constitutional: Yes: Well Nourished, Calm, Mild Distress Eyes: Yes: Conjunctiva Clear HENT: Yes: Atraumatic, Normocephalic Neck: Yes: Supple, Trachea Midline Cardiovascular: Yes: Regular Rate and Rhythm Respiratory: Yes: Regular, CTA Bilaterally Gastrointestinal: Yes: Normal Bowel Sounds, Soft Musculoskeletal: Yes: WNL Extremities: Yes: WNL Neurological: Yes: Alert, Oriented Psychiatric: Yes: Alert, Oriented Labs: CBC, BMP 08/25/19 21:30 08/25/19 21:30 Imaging - Results Chest X-ray: Report Reviewed, Image Reviewed Cat Scan: Report Reviewed, Image Reviewed Assessment/Plan this patient with multiple medical problems with recent travel to [place] coming in with fevers i am going to send a malarial exam if patient does not spike any more fever will consider stopping abx
[2019-08-27] MEDS ORDERED: MAG HYDROX/AL HYDROX/SIMETH 30 ML UNIT-DOSE CUP PO PRN (17:45)
[2019-08-27] MEDS ORDERED: ACETAMINOPHEN 325 MG TABLET (FP) PO PRN (17:47)
[2019-08-28] MEDS ORDERED: PIPERACILLIN/TAZOBACTAM 3.375 GM VIAL IVPB ONE ×2 (02:08→10:46)
[2019-08-28] MEDS ORDERED: DEXTROSE 5%-WATER - 50 ML IVPB ONE ×2 (02:08→10:47)
[2019-08-28] MEDS: PIPERACILLIN/TAZOB 3.375 GM 3.375 GM in DEXTROSE 5%-WATER - 50 ML IVPB SCH ×2 (02:17→10:38)
[2019-08-28 07:46] VITALS: PULSE 66
--- NOTE | 2019-08-28 09:14 | PN ---
Progress Note, Physician History of Present Illness: GI FOLLOW UP NOTE Patient examined and case discussed with Dr Parker Patient states feeling better. Denies nausea, vomiting, abdominal pain, diarrhea, constipation. No reports of rectal bleeding or melena. - Current Medication List Current Medications: Active Medications Al Hydroxide/Mg Hydroxide (Mylanta Oral Suspension -) 30 ml PO Q6H PRN PRN Reason: GAS Last Admin: 08/27/19 18:15 Dose: 30 ml Piperacillin Sod/Tazobactam (Sod 3.375 gm/ Dextrose) 50 mls @ 100 mls/hr IVPB Q8H-IV MARIA G Last Admin: 08/28/19 02:17 Dose: 100 mls/hr Pantoprazole Sodium (Protonix -) 40 mg PO DAILY MARIA G Last Admin: 08/27/19 10:21 Dose: Not Given - Objective Vital Signs: Vital Signs Temperature 98.5 F 08/28/19 06:00 Pulse Rate 66 08/28/19 06:00 Respiratory Rate 18 08/28/19 06:00 Blood Pressure 103/52 L 08/28/19 06:00 O2 Sat by Pulse Oximetry (%) 97 08/27/19 21:00 Constitutional: Yes: No Distress, Calm Eyes: Yes: Conjunctiva Clear HENT: Yes: Atraumatic Cardiovascular: Yes: Regular Rate and Rhythm Respiratory: Yes: Regular, CTA Bilaterally Gastrointestinal: Yes: Normal Bowel Sounds, Soft Neurological: Yes: Alert, Oriented Psychiatric: Yes: Alert, Oriented Labs: CBC, BMP 08/25/19 21:30 08/25/19 21:30 Problem List - Problems (1) Intractable abdominal pain Assessment/Plan: Pantoprazole Reglan due to 9mm FB in stomach R>FB will pass thru GI tract naturally instructed to follow up with Dr Parker as out patient Code(s): R10.9 - UNSPECIFIED ABDOMINAL PAIN
--- NOTE | 2019-08-28 09:15 | DS ---
Physical Examination Vital Signs: Vital Signs Temperature 98.5 F 08/28/19 06:00 Pulse Rate 66 08/28/19 06:00 Respiratory Rate 18 08/28/19 06:00 Blood Pressure 103/52 L 08/28/19 06:00 O2 Sat by Pulse Oximetry (%) 97 08/27/19 21:00 Findings/Remarks: No fever or abdominal pain Dr Bennett note noted DC home Constitutional: Yes: No Distress Eyes: Yes: WNL HENT: Yes: WNL Neck: Yes: WNL Cardiovascular: Yes: WNL Respiratory: Yes: WNL Gastrointestinal: Yes: WNL ...Rectal Exam: Yes: Deferred Renal/: Yes: WNL Breast(s): Yes: WNL Musculoskeletal: Yes: WNL Extremities: Yes: WNL Edema: No Neurological: Yes: Alert Psychiatric: Yes: Alert Labs: CBC, BMP 08/25/19 21:30 08/25/19 21:30 Discharge Summary Problems reviewed: Yes Reason For Visit: INTRACTABLE ABNORMAL PAIN Current Active Problems Intractable abdominal pain (Acute) Condition: Improved - Instructions Referrals: Radha Ernst MD [Primary Care Provider] - - Home Medications Comprehensive Discharge Medication List: Ambulatory Orders Mag Hydrox/Al Hydrox/Simeth [Mylanta Suspension -] 30 ml PO Q6H PRN #1 bottle Ondansetron [Zofran *Odt*] 8 mg SL BID PRN #20 od.tablet 05/25/17
[2019-08-28 10:37] VITALS: BP 97/64; TEMP 98.4
[2019-08-28] MEDS: PANTOPRAZOLE 40 MG TABLET PO SCH (10:38)
--- NOTE | 2019-08-28 13:48 | PN ---
Progress Note, Physician History of Present Illness: patient stable no new issues afebrile - Current Medication List Current Medications: Active Medications Al Hydroxide/Mg Hydroxide (Mylanta Oral Suspension -) 30 ml PO Q6H PRN PRN Reason: GAS Last Admin: 08/27/19 18:15 Dose: 30 ml Piperacillin Sod/Tazobactam (Sod 3.375 gm/ Dextrose) 50 mls @ 100 mls/hr IVPB Q8H-IV MARIA G Last Admin: 08/28/19 10:38 Dose: 100 mls/hr Pantoprazole Sodium (Protonix -) 40 mg PO DAILY MARIA G Last Admin: 08/28/19 10:38 Dose: 40 mg - Objective Vital Signs: Vital Signs Temperature 98.4 F 08/28/19 10:00 Pulse Rate 66 08/28/19 10:00 Respiratory Rate 08/28/19 10:00 Blood Pressure 97/64 08/28/19 10:00 O2 Sat by Pulse Oximetry (%) 97 08/27/19 21:00 Constitutional: Yes: No Distress, Calm Cardiovascular: Yes: S1, S2 Respiratory: Yes: Regular, CTA Bilaterally Musculoskeletal: Yes: WNL Extremities: Yes: WNL Neurological: Yes: Alert, Oriented Psychiatric: Yes: Alert, Oriented Labs: CBC, BMP 08/25/19 21:30 08/25/19 21:30 Assessment/Plan fever mosquito bite weakness dehydration plan all cx reports noted can stop abx
--- NOTE | 2019-08-28 16:48 | EKG ---
Test Reason : Blood Pressure : / mmHG Vent. Rate : 103 BPM Atrial Rate : 103 BPM P-R Int : 132 ms QRS Dur : 076 ms QT Int : 344 ms P-R-T Axes : 047 034 043 degrees QTc Int : 450 ms SINUS TACHYCARDIA OTHERWISE NORMAL ECG Confirmed by MD KARENA, MARIS ([id number]) on 08/28/2019 4:48:14 PM Referred By: Confirmed By:MARIS THURSTON MD
== END 2019-08-28 15:26 | disposition home or self-care (01) | DRG 254 ==
LOC: JER 19:09 → JERBED 23:55 → J5S 08-27 01:06
PROVIDERS: ADMIT Internal Medicine; ATTEND Internal Medicine
DX: T18.2XXA Foreign body in stomach, initial encounter (principal); R10.84 Generalized abdominal pain; R50.9 Fever, unspecified; K76.0 Fatty (change of) liver, not elsewhere classified; E86.0 Dehydration; W57.XXXA Bitten or stung by nonvenomous insect and other nonvenomous arthropods, initial encounter; E27.8 Other specified disorders of adrenal gland; K29.70 Gastritis, unspecified, without bleeding; N85.9 Noninflammatory disorder of uterus, unspecified; K76.89 Other specified diseases of liver; K56.7 Ileus, unspecified
CPT/HCPCS: 36415; 71046-TC-FY; 74018-TC-FY; 74177-TC; 76705-TC; 80053; 81003; 83605; 83690; 84703; 85025; 87040; 87207; 87804; 93005; 93010; 99285-25; J7030; Q9967